=== PATIENT | male | born 1995 | race African-American/Black ===

== ENCOUNTER 2019-05-17 13:34 | Emergency (ER) | payer OTHER ==
[2019-05-17 13:40] VITALS: RESP 18; TEMP 98.2
--- NOTE | 2019-05-17 15:00 | XR ---
Right forearm and right hand HISTORY: Pain, trauma, numbness in fingers 2 views of the right forearm and 3 views of the right hand symmetric Bone mineralization, joint spaces and alignment are maintained. No evident elbow joint effusion. IMPRESSION: No fracture or dislocation of the right forearm or hand.
[2019-05-17] MEDS ORDERED: IBUPROFEN 600 MG TAB PO STA (15:11)
--- NOTE | 2019-05-17 15:11 | ED ---
Upper Extremity HPI - General Chief Complaint: Extremity Injury, Upper Stated Complaint: Fall, wrist injury [facility] Time Seen by Provider: 05/17/19 13:36 Source: patient Mode of arrival: ambulatory Limitations: no limitations - History of Present Illness Initial Comments: 23-year-old male presenting for right wrist pain. Patient states he was walking tripping on a rug or extending his hands to catch himself. Patient then began noting right wrist pain. Patient states he does not think anything is broken he is able to fully range of the right wrist. Denies numbness tingling or loss sensation coolness or pallor of the extremity. Denies any elbow further pain. Patient states the pain is mostly located to the forearm. Patient denies any injury to head neck or back. Denies loss of consciousness. Remaining review of system negative. Upon arrival patient appears well - Related Data Home Medications Medication Instructions Recorded Confirmed No Known Home Medications 05/17/19 05/17/19 Allergies Allergy/AdvReac Type Severity Reaction Status Date / Time No Known Allergies Allergy Verified 05/17/19 13:45 Review of Systems ROS Statement: Those systems with pertinent positive or pertinent negative responses have been documented in the HPI. ROS Other: All systems not noted in ROS Statement are negative. Past Medical History Past Medical History: No Reported History History of Any Multi-Drug Resistant Organisms: None Reported Past Surgical History: No Surgical Hx Reported Past Psychological History: No Psychological Hx Reported Smoking Status: Never smoker Past Alcohol Use History: None Reported Past Drug Use History: None Reported General Exam - General Exam Comments Initial Comments: General: The patient is awake and alert, in no distress, and does not appear acutely ill. Eye: Pupils are equal, round and reactive to light, extra-ocular movements are intact. No nystagmus. There is normal conjunctiva bilaterally. No signs of icterus. Cardiovascular: There is a regular rate and rhythm. No murmur, rub or gallop is appreciated. Respiratory: Lungs are clear to auscultation, respirations are non-labored, breath sounds are equal. No wheezes, stridor, rales, or rhonchi. Gastrointestinal: [Soft, non-distended, non-tender abdomen without masses or organomegaly noted. There is no rebound or guarding present. No CVA tenderness. Bowel sounds are unremarkable.] Musculoskeletal: Upon inspection of the wrist bilaterally there is no soft tissue swelling of the right versus the left. No anatomical snuffbox tenderness. Patient compared to pain with both passive and active range of motion at the wrist. Advil palpation of the distal forearm. No gross deformity. Strength preserved. Patient is able to make the okay fingers crossed thumbs-up and extend at the wrist bilaterally. Radial pulses +2 equal bilaterally. No evidence of wrist drop. Neurological: A&O x 3. CN II-XII intact grossly, There are no obvious motor or sensory deficits. Coordination appears grossly intact. Speech is normal. Skin: Skin is warm and dry and no rashes or lesions are noted. Psychiatric: Cooperative, appropriate mood & affect, normal judgment. Limitations: no limitations Course Vital Signs 05/17/19 05/17/19 13:38 15:25 Temperature 98.2 F Pulse Rate 90 88 Respiratory 18 18 Rate Blood Pressure 160/89 136/75 O2 Sat by Pulse 98 98 Oximetry Medical Decision Making - Medical Decision Making 23-year-old male presenting for wrist pain. After fall. Imaging studies negative for osseous process. Patient is able to range without difficulty. He is neurovascularly intact. No anatomical snuffbox tenderness. This time feel patient most likely hyperextend his wrist. Rice instructions were discussed with patient as well as the importance of resting the right wrist. Patient was provided work note. Patient to follow-up with primary care provider of this I do feel patient is stable for discharge with outpatient follow-up. Disposition Clinical Impression: Wrist strain, Fall Disposition: HOME SELF-CARE Condition: Good Instructions (If sedation given, give patient instructions): Wrist Injury (ED) Additional Instructions: Please use medication as discussed. Please follow-up with family doctor in the next 2 days, no use of the right hand wrist for the next 48 hours. May return to work as tolerated 05/21/19. Please return to emergency room if the symptoms increase or worsen or for any other concerns. Is patient prescribed a controlled substance at d/c from ED?: No Referrals: None,Stated [Primary Care Provider] - 1-2 days [facility] [NON-STAFF] - 1-2 days Time of Disposition: 15:10
[2019-05-17 15:26] VITALS: BP 136/75; PULSE 88
== END 2019-05-17 15:26 | disposition home or self-care (01) ==
LOC: EC 13:34
DX: S66.911A Strain of unspecified muscle, fascia and tendon at wrist and hand level, right hand, initial encounter (principal); W01.0XXA Fall on same level from slipping, tripping and stumbling without subsequent striking against object, initial encounter; Y92.69 Other specified industrial and construction area as the place of occurrence of the external cause; Y99.0 Civilian activity done for income or pay
CPT/HCPCS: 99283